=== PATIENT | female | born 1995 | race Asian ===

== ENCOUNTER 2022-10-28 09:29 | Inpatient (IN) ==
--- NOTE | 2022-10-28 11:11 | Emergency Department Note ---
ED Provider Note History of Present Illness Chief Complaint: Illness Stated Complaint: SWOLLEN AREA IN PERINEUM AREA Time Seen by Provider: 10/28/22 11:09 This is a healthy 26-year-old female on no daily medications who presents to the emergency department referred from [facility] for a cyst in her perineal region. Patient states that she noticed a very small amount of discomfort about 10 days ago, did not think much of it, and yesterday became more swollen and sensitive. It hurts when she pushes on it. It is a little uncomfortable when she wipes her bottom but does not have any pain with bowel movement. Has not drained anything. Symptoms are not accompanied by any fevers, chills, dysuria, abdominal pain, nausea, vomiting. Patient is never had anything like this before. No known history of MRSA. She is sexually active but is not concerned about Denies any abnormal vaginal discharge or bleeding. Home Medications Medication Instructions Recorded Confirmed Type Lactobacillus 1 cap PO QAM 10/28/22 10/28/22 History acidophilus-Lactbacillus bifidus 1 billion cell capsule multivitamin 1 tab PO QAM 10/28/22 10/28/22 History Allergies Allergy/AdvReac Type Severity Reaction Status Date / Time pet dander Allergy Intermediate Sneezing Uncoded 10/28/22 11:40 Past Med/Surg History Social History Smoking Status: Former smoker Second Hand Exposure: No; Do You Dip or Chew Tobacco: No; Tobacco Cessation Education Requested by Patient: No Hx Alcohol Use: Yes Alcohol type: beer and wine Hx Substance Use: Yes (Not currently using. Recreational.) Preferred Language: [place] Communication Ability: Effective Shuttle Operator Required: Yes Beliefs That Will Affect Care: None Current Living Situation: Alone Other Information That Helps Us Care for You: No Feels Safe at Home: Yes Safety Concerns: Feels Safe At This Time Assistive Devices: None Physical Exam Vital Signs Vital Signs - 24 hr 10/28/22 09:38 10/28/22 12:36 10/28/22 16:26 Temperature 98.1 F 99.1 F Temperature Source Oral Oral Pulse Rate 71 Pulse Rate [Right Finger] 97 H 68 Pulse Rhythm [Right Finger] Regular Regular Pulse Strength [Right Finger] Normal Normal Respiratory Rate 18 20 Respiratory Effort / Characteristics Non-Labored Spontaneous Non-Labored Spontaneous Respiratory Depth Normal Normal Respiratory Pattern Regular Blood Pressure 104/70 Blood Pressure [Right Arm] 116/75 Blood Pressure Mean 81 Blood Pressure Mean [Right Arm] 88 Blood Pressure Position [Right Arm] Semi-fowlers Pulse Oximetry 98 100 Oxygen Delivery Method Room Air Room Air Sepsis Recent Fever Within 48 Hours No Sepsis New/Unexplained Change in Mental Status No Sepsis Action Taken by Nursing No Action Required Female RN rn urology present for examination CONSTITUTIONAL: Well developed, well nourished, in no acute distress resting comfortably on stretcher. EYES: conjunctivae normal, extraocular muscles intact. ENMT: External ears normal. Nose with normal external appearance, no congestion. Oral mucous membranes moist. Oropharynx normal. NECK: Full active range of motion. LYMPHATIC: No inguinal adenopathy RESPIRATORY: Breathing unlabored and symmetric. ABDOMEN: Normal bowel sounds. Soft, nontender, no peritonitis. No masses. GENITOURINARY: There is a cystic abscess appearing structure present in the perineum. This is tender to palpation, slightly fluctuant. Does not involve the vagina. Abuts the anus. There is no surrounding erythema. Rectal exam reveals no obvious induration along the rectal wall though is somewhat uncomfortable for patient. There is no abnormal vaginal discharge or bleeding MUSCULOSKELETAL: Moves all extremities at all joints without pain or difficulty. No cyanosis or edema. Back with full range of motion. SKIN: [place], warm, dry. NEUROLOGIC: Awake, alert, oriented. Moves head and all four extremities spontaneously. Sensation and strength grossly intact. PSYCHIATRIC: Appropriate. Normal affect Course Administered Medications Lactated Ringer's (Lr) 1,000 mls @ 80 mls/hr IV .[id number] [facility] Stop: 11/27/22 19:09 Last Admin: 10/28/22 20:22 Dose: 80 mls/hr Documented By: RUT Ciprofloxacin (Cipro / D5w) 400 mg in 200 mls @ 100 mls/hr IV Q12H JENNIFER; Protocol Stop: 11/07/22 20:59 Last Admin: 10/28/22 22:45 Dose: 100 mls/hr Documented By: RUT Metronidazole (Flagyl) 500 mg in 100 mls @ 100 mls/hr IV Q8H JENNIFER; Protocol Stop: 11/07/22 19:59 Last Infusion: 10/28/22 22:53 Dose: 0 mls/hr Documented By: Admin: 10/28/22 21:21 Dose: 100 mls/hr Documented By: RUT Discontinued Medications Bacitracin (Bacitracin Oint 14 Gm Tube) Confirm Administered Dose 45 appln .ROUTE .[facility] Stop: 10/28/22 15:54 Last Admin: 10/28/22 17:06 Dose: 45 appln Documented By: GOLDY Bupivacaine HCl (Bupivacaine 0.5 % 5 Mg/1 Ml Mpf 30ml Vial) Confirm Administered Dose 30 ml .ROUTE .[facility] ONE Stop: 10/28/22 15:54 Last Admin: 10/28/22 17:07 Dose: 20 ml Documented By: GOLDY Gelatin (Gelatin Sponge 12-7mm) Confirm Administered Dose 1 each .ROUTE .[facility] ONE Stop: 10/28/22 15:54 Last Admin: 10/28/22 17:08 Dose: Not Given Documented By: SAM Ciprofloxacin (Cipro / D5w) 400 mg in 200 mls @ 100 mls/hr IV PREOP JENNIFER; Protocol Stop: 11/05/22 05:59 Last Infusion: 10/28/22 23:30 Dose: 0 mls/hr Documented By: Admin: 10/28/22 16:39 Dose: 100 mls/hr Documented By: [id number] Lactated Ringer's (Lr) 1,000 mls @ 125 mls/hr IV .Q8H JENNIFER Stop: 11/27/22 16:44 Last Infusion: 10/28/22 16:39 Dose: 0 mls/hr Documented By: Admin: 10/28/22 16:38 Dose: 125 mls/hr Documented By: MARANDA Ioversol (Optiray 320 100ml) 90 ml IV ONCE ONE Stop: 10/28/22 14:08 Last Admin: 10/28/22 14:07 Dose: 90 ml Documented By: RACHEL Lidocaine HCl (Lidocaine 1% Local 20 Ml Vial) Confirm Administered Dose 20 ml .ROUTE .[facility] ONE Stop: 10/28/22 15:54 Last Admin: 10/28/22 17:08 Dose: 20 ml Documented By: GOLDY Medical Decision Making Differential Diagnosis Abscess, epidermoid cyst, cellulitis, doubt Swati's gangrene, malignancy, doubt Bartholin gland abscess, perianal abscess, perirectal abscess, fistula, among other pathology Laboratory Data 10/28/22 11:40 10/28/22 11:40 Lab Results 10/28/22 10/28/22 10/28/22 Range/Units 11:40 11:40 11:41 WBC 6.47 (4.8-10.8) K/ul RBC 4.29 (4.20-5.40) M/uL Hgb 13.6 (12.0-16.0) g/dl Hct 40.0 (37.0-47.0) % MCV 93.2 (80.0-100.0) fL MCH 31.7 (25.0-34.0) pg MCHC 34.0 (32.0-36.0) g/dL RDW Std Deviation 41.9 (36.4-46.3) fL RDW Coeff of Elicia 12.2 (11.5-14.5) % Plt Count 292 (130-400) K/uL MPV 10.7 (9.4-12.4) fL Immature Gran % (Auto) 0.2 % Neut % (Auto) 63.2 % Lymph % (Auto) 30.6 % [place] % (Auto) 4.3 % Eos % (Auto) 0.9 % Baso % (Auto) 0.8 % Neut # (Auto) 4.09 (1.40-6.50) K/uL Lymph # (Auto) 1.98 (1.20-3.40) K/uL [place] # (Auto) 0.28 (0.11-0.59) K/uL Eos # (Auto) 0.06 (0.00-0.50) K/uL Baso # (Auto) 0.05 (0.00-0.20) K/uL Immature Gran # (Auto) 0.01 (0.01-0.20) K/uL Sodium 139 (136-145) mmol/L Potassium 3.6 (3.5-5.1) mmol/L Chloride 106 (98-107) mmol/L Carbon Dioxide 27 (21-32) mmol/L Anion Gap 6 (3-11) BUN 11 (6-23) mg/dl Creatinine 0.55 L (0.6-1.2) mg/dl Est Cr Clr Drug Dosing Not Reportable Est GFR ( Amer) 147.9 ml/min Est GFR (Non-Af Amer) 127.6 ml/min BUN/Creatinine Ratio 20.0 (10-20) Glucose 80 (70-99(Fasting)) mg/dl Calcium 9.6 (8.6-10.3) mg/dl Total Bilirubin 0.8 (0.2-1.0) mg/dl AST 17 (13-39) U/L ALT 11 (7-52) U/L Alkaline Phosphatase 70 (34-104) U/L Total Protein 7.1 (6.0-8.3) gm/dl Albumin 4.8 (3.4-5.0) gm/dl Globulin 2.3 L (2.5-4.0) gm/dl Albumin/Globulin Ratio 2.1 H (0.9-2) Urine Color Yellow Urine Appearance Clear (Clear) Urine pH 5.5 (4.5-7.5) Ur Specific [place] 1.017 (1.000-1.030) Urine Protein Negative (Negative) Urine Glucose (UA) Negative (Negative) Urine Ketones Negative (Negative) Urine Blood Negative (Negative) Urine Nitrite Negative (Negative) Urine Bilirubin Negative (Negative) Urine Urobilinogen Negative (Negative) Ur Leukocyte Esterase Negative (Negative) POC Ur Test (NEG) 10/28/22 Range/Units 11:41 WBC (4.8-10.8) K/ul RBC (4.20-5.40) M/uL Hgb (12.0-16.0) g/dl Hct (37.0-47.0) % MCV (80.0-100.0) fL MCH (25.0-34.0) pg MCHC (32.0-36.0) g/dL RDW Std Deviation (36.4-46.3) fL RDW Coeff of Elicia (11.5-14.5) % Plt Count (130-400) K/uL MPV (9.4-12.4) fL Immature Gran % (Auto) % Neut % (Auto) % Lymph % (Auto) % [place] % (Auto) % Eos % (Auto) % Baso % (Auto) % Neut # (Auto) (1.40-6.50) K/uL Lymph # (Auto) (1.20-3.40) K/uL [place] # (Auto) (0.11-0.59) K/uL Eos # (Auto) (0.00-0.50) K/uL Baso # (Auto) (0.00-0.20) K/uL Immature Gran # (Auto) (0.01-0.20) K/uL Sodium (136-145) mmol/L Potassium (3.5-5.1) mmol/L Chloride (98-107) mmol/L Carbon Dioxide (21-32) mmol/L Anion Gap (3-11) BUN (6-23) mg/dl Creatinine (0.6-1.2) mg/dl Est Cr Clr Drug Dosing Est GFR ( Amer) ml/min Est GFR (Non-Af Amer) ml/min BUN/Creatinine Ratio (10-20) Glucose (70-99(Fasting)) mg/dl Calcium (8.6-10.3) mg/dl Total Bilirubin (0.2-1.0) mg/dl AST (13-39) U/L ALT (7-52) U/L Alkaline Phosphatase (34-104) U/L Total Protein (6.0-8.3) gm/dl Albumin (3.4-5.0) gm/dl Globulin (2.5-4.0) gm/dl Albumin/Globulin Ratio (0.9-2) Urine Color Urine Appearance (Clear) Urine pH (4.5-7.5) Ur Specific [place] (1.000-1.030) Urine Protein (Negative) Urine Glucose (UA) (Negative) Urine Ketones (Negative) Urine Blood (Negative) Urine Nitrite (Negative) Urine Bilirubin (Negative) Urine Urobilinogen (Negative) Ur Leukocyte Esterase (Negative) POC Ur Test NEG (NEG) Imaging Data Radiologist's Impression: Soft Tissue Ultrasound 10/28/22 11:22 US soft tissue groin CLINICAL HISTORY: perineal ?abscess COMPARISON STUDY: No previous studies for comparison. TECHNIQUE: Sonography of the perineum was performed at site of painful lump. FINDINGS: Note is made of a 2.4 x 1.8 x 0.8 cm hypoechoic focus within the perineum, along anterior aspect of the rectum. This corresponds to the painful p alpable lump. This is intimately associated with the rectum and there may be an associated fistula with communication to the rectum. This contains no color flow. No additional abnormalities are identified. IMPRESSION: 2.4 x 1.8 x 0.8 cm perineal/anterior perirectal hypoechoic focus without color flow. This raises the possibility of a perirectal abscess with underlying fistula. A CT of the pelvis with IV contrast could be obtained for confirmation. ACT 112: Negative or not required by law. Electronically signed by: Sebastien Araujo M.D. 10/28/2022 1:46 PM Abdomen/Pelvis CT 10/28/22 13:34 CT OF THE ABDOMEN AND PELVIS WITH CONTRAST CLINICAL HISTORY: perineal mass with possible rectal communication COMPARISON STUDY: Perineal ultrasound performed earlier today. TECHNIQUE: Following IV administration of 90 mL of Optiray, axial images of the abdomen and pelvis were obtained from the lung bases to the proximal femurs. Images were reviewed in the axial, sagittal, and coronal planes. IV contrast was administered without complication. Automated exposure control was utilized for the study. A dose lowering technique was utilized adhering to the principles of ALARA. CT DOSE: 648.99 mGy.cm FINDINGS: Lung bases are unremarkable. No pneumatosis, free air or portal venous gas is present. Liver, spleen, adrenal glands, kidneys and pancreas are normal. There is no biliary or pancreatic ductal dilatation is no hydronephrosis. The appendix is normal. Caliber and wall thickness of small and large bowel are normal. Note is made of a 1.5 x 1.3 x 0.9 cm rim-enhancing fluid collection within the perineum, anterior to the anus. This corresponds to the finding on ultrasound. No additional fluid collections are present. No fistulas identified to the anus however a small fistula may be occult by CT. IMPRESSION: Small 1.5 x 1.3 x 0.9 cm rim-enhancing perineal/anterior perianal fluid collection which corresponds to the finding on ultrasound from earlier today. Sterility cannot be assessed by CT however this is suggestive of a small abscess, intimately associated with the anterior anus. ACT 112: Negative or not required by law. Electronically signed by: Sebastien Araujo M.D. 10/28/2022 2:25 PM [facility] Narrative 26-year-old female presents the emergency department with a cystic abscess type structure present in her perineum. It sound like this began about 10 days ago but became worse yesterday. Was referred to the emergency department by [facility] who evaluated her today. On exam she is well-appearing in no acute distress with normal vital signs. Inspection of the a cystic abscess type structure in the perineum which is slightly fluctuant and tender to palpation. There is no significant surrounding erythema genitourinary exam reveals. No crepitus. Rectal exam does not reveal any obvious infiltration into the rectal wall though it is uncomfortable for the patient. Patient declined anything for pain. An IV was inserted and labs were obtained. Urine: is negative. Urine without evidence of infection. Labs: No leukocytosis or anemia. Normal renal function. No electrolyte disturbance. No transaminitis. Ultrasound of the perineum was obtained showing a 2.4 cm perineal/anterior perirectal hypoechoic focus concerning for possible perirectal abscess with und erlying fistula. CT abdomen pelvis is recommended, and this was obtained demonstrating 1.5 cm rim-enhancing peritoneal/anterior perianal fluid collection suggestive of small abscess. No obvious communication with the rectum. Case was reviewed with general surgery and Dr. Stanford evaluated the patient at bedside. After discussing options with the patient, patient will be taken to the OR for incision and drainage. Dr. Stanford requests ciprofloxacin IV 400 mg preop. Case was reviewed multiple times with ED attending Dr. Romo while the patient was in the emergency department. Patient will be taken to the OR today Impression Abscess, perineum Discharge Plan Visit Data Chief Complaint: Illness Stated Complaint: SWOLLEN AREA IN PERINEUM AREA ED Provider: Aura Romo ED Midlevel Provider: Tim García Discharge Problem: Abscess, perineum Patient Disposition: Admitted As Inpatient Condition: Good
[2022-10-28 12:24] LABS: Basophils # (auto) 0.05 K/uL (0.00-0.20); Basophils % (auto) 0.8 %; Eosinophils # (auto) 0.06 K/uL (0.00-0.50); Eosinophils % (auto) 0.9 %; Hemoglobin 13.6 g/dl (12.0-16.0); Immature Granulocytes # (auto) 0.01 K/uL (0.01-0.20); Immature Granulocytes % (auto) 0.2 %; Lymphocytes # (auto) 1.98 K/uL (1.20-3.40); Lymphocytes % (auto) 30.6 %; Mean Corpuscular Hemoglobin 31.7 pg (25.0-34.0); Mean Corpuscular Volume 93.2 fL (80.0-100.0); Mean Platelet Volume 10.7 fL (9.4-12.4); Monocytes # (auto) 0.28 K/uL (0.11-0.59); Monocytes % (auto) 4.3 %; Neutrophils # (auto) 4.09 K/uL (1.40-6.50); Neutrophils % (auto) 63.2 %; Platelet Count 292 K/uL (130-400); RDW Coefficient of Variation 12.2 % (11.5-14.5); RDW Standard Deviation 41.9 fL (36.4-46.3); Red Blood Count 4.29 M/uL (4.20-5.40); White Blood Count 6.47 K/ul (4.8-10.8)
[2022-10-28 12:40] LABS: Alanine Aminotransferase 11 U/L (7-52); Albumin Globulin Ratio 2.1 (0.9-2); Albumin Level 4.8 gm/dl (3.4-5.0); Alkaline Phosphatase 70 U/L (34-104); Anion Gap 6 (3-11); Aspartate Aminotransferase 17 U/L (13-39); Bilirubin,Total 0.8 mg/dl (0.2-1.0); Blood Urea Nitrogen 11 mg/dl (6-23); Calcium 9.6 mg/dl (8.6-10.3); Carbon Dioxide 27 mmol/L (21-32); Chloride 106 mmol/L (98-107); Est GFR (African American) 147.9 ml/min; Est GFR (Non-African American) 127.6 ml/min; Globulin 2.3 gm/dl (2.5-4.0); Glucose 80 mg/dl (70-99(Fasting)); Potassium 3.6 mmol/L (3.5-5.1); Sodium 139 mmol/L (136-145); Total Protein 7.1 gm/dl (6.0-8.3)
[2022-10-28 12:51] LABS: Appearance Urine Clear (Clear); Bilirubin Urine Negative (Negative); Blood Urine Negative (Negative); Color Urine Yellow; Glucose Urine UA Negative (Negative); Ketones Urine Negative (Negative); Leukocyte Esterase Urine Negative (Negative); Nitrite Urine Negative (Negative); Protein Urine Negative (Negative); Specific Gravity Urine 1.017 (1.000-1.030); Urobilinogen Urine Negative (Negative); pH Urine 5.5 (4.5-7.5)
--- NOTE | 2022-10-28 13:49 | Ultrasound Report ---
US soft tissue groin CLINICAL HISTORY: perineal ?abscess COMPARISON STUDY: No previous studies for comparison. TECHNIQUE: Sonography of the perineum was performed at site of painful lump. FINDINGS: Note is made of a 2.4 x 1.8 x 0.8 cm hypoechoic focus within the perineum, along anterior a spect of the rectum. This corresponds to the painful palpable lump. This is intimately associated wit h the rectum and there may be an associated fistula with communication to the rectum. This contains n o color flow. No additional abnormalities are identified. IMPRESSION: 2.4 x 1.8 x 0.8 cm perineal/anterior perirectal hypoechoic focus without color flow. Th is raises the possibility of a perirectal abscess with underlying fistula. A CT of the pelvis with IV contrast could be obtained for confirmation. ACT 112: Negative or not required by law. Electronically signed by: Sebastien Araujo M.D. 10/28/2022 1:46 PM
[2022-10-28] MEDS ORDERED: OPTIRAY 320 100ml IV ONE (14:07)
--- NOTE | 2022-10-28 14:27 | CT Scan Report ---
CT OF THE ABDOMEN AND PELVIS WITH CONTRAST CLINICAL HISTORY: perineal mass with possible rectal communication COMPARISON STUDY: Perineal ultrasound performed earlier today. TECHNIQUE: Following IV administration of 90 mL of Optiray, axial images of the abdomen and pelvis we re obtained from the lung bases to the proximal femurs. Images were reviewed in the axial, sagittal, and coronal planes. IV contrast was administered without complication. Automated exposure control wa s utilized for the study. A dose lowering technique was utilized adhering to the principles of ALARA . CT DOSE: 648.99 mGy.cm FINDINGS: Lung bases are unremarkable. No pneumatosis, free air or portal venous gas is present. Live r, spleen, adrenal glands, kidneys and pancreas are normal. There is no biliary or pancreatic ductal dilatation is no hydronephrosis. The appendix is normal. Caliber and wall thickness of small and larg e bowel are normal. Note is made of a 1.5 x 1.3 x 0.9 cm rim-enhancing fluid collection within the pe rineum, anterior to the anus. This corresponds to the finding on ultrasound. No additional fluid ian ections are present. No fistulas identified to the anus however a small fistula may be occult by CT. IMPRESSION: Small 1.5 x 1.3 x 0.9 cm rim-enhancing perineal/anterior perianal fluid collection which corresponds to the finding on ultrasound from earlier today. Sterility cannot be assessed by CT bravo justo this is suggestive of a small abscess, intimately associated with the anterior anus. ACT 112: Negative or not required by law. Electronically signed by: Sebastien Araujo M.D. 10/28/2022 2:25 PM
--- NOTE | 2022-10-28 15:52 | Surgery Consultation ---
Date of Consultation October 28, 2022 Assessment & Plan (1) Juanita-rectal abscess: Assessment: Patient is a 26 years old female who presented 10 days history rectal pain. Patient had a ultrasound CT scan diagnosis of perirectal abscess. IMP: Perirectal abscess plan: Based on the patient history physical exam I recommend to do incision and drainage perirectal abscess. Discussion with the patient about the benefit the risk and alternative of the procedure. I indicated the risks may include but not limited such as a bleeding, infection, recurrence, rectal fistula, may need a more surgical procedures, scar and pain. patient understood. she agreed to proceed the procedure patient signed informed consent. I answered all questions. pre-op antibiotic. History of Present Illness Reason for Consultation: perirectal abscess Requesting Physician: Aura Park History of Present Illness CC: rectal pain HPI: Patient is a 26 years old female who presented to the ED with 10 days history of rectal pain. Patient felt small lump perirectal area about 10 days ago. Today if patient feels more rectal pain, but no drainage or from perirectal area. and the lump is to get bigger. Patient denies fever, no diarrhea. normal bowel movement today. No abdominal pain. Patient had a ultrasound and a CT scan done diagnosis perirectal abscess. I was asked to reconsult perirectal abscess. Allergies Allergy/AdvReac Type Severity Reaction Status Date / Time pet dander Allergy Intermediate Sneezing Uncoded 10/28/22 11:40 Home Medications Medication Instructions Recorded Confirmed Type Lactobacillus 1 cap PO QAM 10/28/22 10/28/22 History acidophilus-Lactbacillus bifidus 1 billion cell capsule multivitamin 1 tab PO QAM 10/28/22 10/28/22 History Patient History Social History Smoking Status: Never smoker Preferred Language: Upper Sorbian Feels Safe at Home: Yes Review of Systems Constitutional: as per Subjective / HPI Eyes: as per Subjective / HPI Respiratory: as per Subjective / HPI Cardiovascular: as per Subjective / HPI Gastrointestinal: as per Subjective / HPI Neurologic: as per Subjective / HPI Psychiatric: as per Subjective / HPI Endocrine: as per Subjective / HPI Hematologic / Lymphatic: as per Subjective / HPI Physical Exam Constitutional: WD/WN, vitals as above Eyes: PERRL, conjunctivae normal, anicteric sclerae Neck: trachea midline, no thyromegaly Respiratory: normal respiratory effort, lungs clear to auscultation Cardiovascular: RRR, no murmur, no edema Gastrointestinal (Abdomen): abdomen: soft, NT, Nd, BS +, rectal exam. nurse with us. a lump located anterior perirectal area, with redness and tenderness. no drainage. Neurologic: patellar DTR's 2+ bilat, sensation intact Psychiatric: A+Ox3, euthymic affect Results & Data Vital Signs (Past 12 Hours) Vital Signs Temp Pulse Pulse Resp BP Pulse Ox O2 Del Method 10/28/22 12:36 97 H 10/28/22 09:38 36.7 C 71 18 104/70 98 Room Air Laboratory Results Lab Results 10/28/22 10/28/22 10/28/22 Range/Units 11:40 11:40 11:41 WBC 6.47 (4.8-10.8) K/ul RBC 4.29 (4.20-5.40) M/uL Hgb 13.6 (12.0-16.0) g/dl Hct 40.0 (37.0-47.0) % MCV 93.2 (80.0-100.0) fL MCH 31.7 (25.0-34.0) pg MCHC 34.0 (32.0-36.0) g/dL RDW Std Deviation 41.9 (36.4-46.3) fL RDW Coeff of Elicia 12.2 (11.5-14.5) % Plt Count 292 (130-400) K/uL MPV 10.7 (9.4-12.4) fL Immature Gran % (Auto) 0.2 % Neut % (Auto) 63.2 % Lymph % (Auto) 30.6 % Smith % (Auto) 4.3 % Eos % (Auto) 0.9 % Baso % (Auto) 0.8 % Neut # (Auto) 4.09 (1.40-6.50) K/uL Lymph # (Auto) 1.98 (1.20-3.40) K/uL Smith # (Auto) 0.28 (0.11-0.59) K/uL Eos # (Auto) 0.06 (0.00-0.50) K/uL Baso # (Auto) 0.05 (0.00-0.20) K/uL Immature Gran # (Auto) 0.01 (0.01-0.20) K/uL Sodium 139 (136-145) mmol/L Potassium 3.6 (3.5-5.1) mmol/L Chloride 106 (98-107) mmol/L Carbon Dioxide 27 (21-32) mmol/L Anion Gap 6 (3-11) BUN 11 (6-23) mg/dl Creatinine 0.55 L (0.6-1.2) mg/dl Est Cr Clr Drug Dosing Not Reportable Est GFR ( Amer) 147.9 ml/min Est GFR (Non-Af Amer) 127.6 ml/min BUN/Creatinine Ratio 20.0 (10-20) Glucose 80 (70-99(Fasting)) mg/dl Calcium 9.6 (8.6-10.3) mg/dl Total Bilirubin 0.8 (0.2-1.0) mg/dl AST 17 (13-39) U/L ALT 11 (7-52) U/L Alkaline Phosphatase 70 (34-104) U/L Total Protein 7.1 (6.0-8.3) gm/dl Albumin 4.8 (3.4-5.0) gm/dl Globulin 2.3 L (2.5-4.0) gm/dl Albumin/Globulin Ratio 2.1 H (0.9-2) Urine Color Yellow Urine Appearance Clear (Clear) Urine pH 5.5 (4.5-7.5) Ur Specific [place] 1.017 (1.000-1.030) Urine Protein Negative (Negative) Urine Glucose (UA) Negative (Negative) Urine Ketones Negative (Negative) Urine Blood Negative (Negative) Urine Nitrite Negative (Negative) Urine Bilirubin Negative (Negative) Urine Urobilinogen Negative (Negative) Ur Leukocyte Esterase Negative (Negative) POC Ur Test (NEG) 10/28/22 Range/Units 11:41 WBC (4.8-10.8) K/ul RBC (4.20-5.40) M/uL Hgb (12.0-16.0) g/dl Hct (37.0-47.0) % MCV (80.0-100.0) fL MCH (25.0-34.0) pg MCHC (32.0-36.0) g/dL RDW Std Deviation (36.4-46.3) fL RDW Coeff of Elicia (11.5-14.5) % Plt Count (130-400) K/uL MPV (9.4-12.4) fL Immature Gran % (Auto) % Neut % (Auto) % Lymph % (Auto) % Smith % (Auto) % Eos % (Auto) % Baso % (Auto) % Neut # (Auto) (1.40-6.50) K/uL Lymph # (Auto) (1.20-3.40) K/uL Smith # (Auto) (0.11-0.59) K/uL Eos # (Auto) (0.00-0.50) K/uL Baso # (Auto) (0.00-0.20) K/uL Immature Gran # (Auto) (0.01-0.20) K/uL Sodium (136-145) mmol/L Potassium (3.5-5.1) mmol/L Chloride (98-107) mmol/L Carbon Dioxide (21-32) mmol/L Anion Gap (3-11) BUN (6-23) mg/dl Creatinine (0.6-1.2) mg/dl Est Cr Clr Drug Dosing Est GFR ( Amer) ml/min Est GFR (Non-Af Amer) ml/min BUN/Creatinine Ratio (10-20) Glucose (70-99(Fasting)) mg/dl Calcium (8.6-10.3) mg/dl Total Bilirubin (0.2-1.0) mg/dl AST (13-39) U/L ALT (7-52) U/L Alkaline Phosphatase (34-104) U/L Total Protein (6.0-8.3) gm/dl Albumin (3.4-5.0) gm/dl Globulin (2.5-4.0) gm/dl Albumin/Globulin Ratio (0.9-2) Urine Color Urine Appearance (Clear) Urine pH (4.5-7.5) Ur Specific [place] (1.000-1.030) Urine Protein (Negative) Urine Glucose (UA) (Negative) Urine Ketones (Negative) Urine Blood (Negative) Urine Nitrite (Negative) Urine Bilirubin (Negative) Urine Urobilinogen (Negative) Ur Leukocyte Esterase (Negative) POC Ur Test NEG (NEG) Diagnostic Findings CT OF THE ABDOMEN AND PELVIS WITH CONTRAST CLINICAL HISTORY: perineal mass with possible rectal communication COMPARISON STUDY: Perineal ultrasound performed earlier today. TECHNIQUE: Following IV administration of 90 mL of Optiray, axial images of the abdomen and pelvis were obtained from the lung bases to the proximal femurs. Images were reviewed in the axial, sagittal, and coronal planes. IV contrast was administered without complication. Automated exposure control was utilized for the study. A dose lowering technique was utilized adhering to the principles of ALARA. CT DOSE: 648.99 mGy.cm FINDINGS: Lung bases are unremarkable. No pneumatosis, free air or portal venous gas is present. Liver, spleen, adrenal glands, kidneys and pancreas are normal. There is no biliary or pancreatic ductal dilatation is no hydronephrosis. The appendix is normal. Caliber and wall thickness of small and large bowel are normal. Note is made of a 1.5 x 1.3 x 0.9 cm rim-enhancing fluid collection within the perineum, anterior to the anus. This corresponds to the finding on ultrasound. No additional fluid collections are present. No fistulas identified to the anus however a small fistula may be occult by CT. IMPRESSION: Small 1.5 x 1.3 x 0.9 cm rim-enhancing perineal/anterior perianal fluid collection which corresponds to the finding on ultrasound from earlier today. Sterility cannot be assessed by CT however this is suggestive of a small abscess, intimately associated with the anterior anus. US soft tissue groin CLINICAL HISTORY: perineal ?abscess COMPARISON STUDY: No previous studies for comparison. TECHNIQUE: Sonography of the perineum was performed at site of painful lump. FINDINGS: Note is made of a 2.4 x 1.8 x 0.8 cm hypoechoic focus within the perineum, along anterior aspect of the rectum. This corresponds to the painful palpable lump. This is intimately associated with the rectum and there may be an associated fistula with communication to the rectum. This contains no color flow. No additional abnormalities are identified. IMPRESSION: 2.4 x 1.8 x 0.8 cm perineal/anterior perirectal hypoechoic focus without color flow. This raises the possibility of a perirectal abscess with underlying fistula. A CT of the pelvis with IV contrast could be obtained for confirmation.
[2022-10-28] MEDS ORDERED: LIDOCAINE 1% LOCAL 20 ML VIAL ONE (15:53)
[2022-10-28] MEDS ORDERED: GELATIN SPONGE 12-7MM ONE (15:53)
[2022-10-28] MEDS ORDERED: BUPIVACAINE 0.5 % 5 MG/1 ML MPF 30ML VIAL ONE (15:53)
[2022-10-28] MEDS ORDERED: BACITRACIN OINT 14 GM TUBE ONE (15:53)
--- NOTE | 2022-10-28 16:00 | History & Physical Bridge Note ---
Date of Service October 28, 2022 History & Physical Bridge Note I have examined the patient, reviewed the History & Physical and in the interval since the performance of the History & Physical I have noted the following changes of clinical significance: no changes noted
[2022-10-28] MEDS ORDERED: DEXAMETHASONE SOD INJ 4 MG/ML VIAL ONE (16:04)
[2022-10-28] MEDS ORDERED: LIDOCAINE 2% 2 ML VIAL/AMP(20MG/ML) INFIL ONE (16:04)
[2022-10-28] MEDS ORDERED: fentaNYL citrate PF 100 MCG/2 ML VIAL ONE (16:04)
[2022-10-28] MEDS ORDERED: MIDAZOLAM HCL 1 MG/ML 2ML VIAL ONE (16:04)
[2022-10-28] MEDS ORDERED: ONDANSETRON INJ 2 MG/ML 2 ML VIAL ONE (16:04)
[2022-10-28] MEDS ORDERED: PROPOFOL IV EMULSION 10 MG/ML 20 ML VIAL IV ONE (16:04)
[2022-10-28] MEDS ORDERED: KETAMINE 50 MG/5 ML SYRINGE ONE (16:08)
[2022-10-28] MEDS ORDERED: CIPROFLOXACIN 400MG / 200ML D5W IV ONE (16:30)
[2022-10-28] MEDS ORDERED: LACTATED RINGER'S 1,000 ML IV SCH (16:45)
--- NOTE | 2022-10-28 16:46 | Anesthesiology Consultation ---
Date of Service October 28, 2022 Assessment & Plan Chart Review Chart Review: Acceptable Risk for Surgery Consults Requested none History Surgery Operation Date: 10/28/22 08:20 Proposed Procedures p Incision and Drainage Perirectal Abscess - Jonas Stanford MD Height/Weight Weight: 67.1 kg Allergies Allergy/AdvReac Type Severity Reaction Status Date / Time pet dander Allergy Intermediate Sneezing Uncoded 10/28/22 11:40 Medications Home Medications Medication Instructions Recorded Confirmed Last Taken Lactobacillus 1 cap PO QAM 10/28/22 10/28/22 10/27/22 acidophilus-Lactbacillus bifidus 1 billion cell capsule multivitamin 1 tab PO QAM 10/28/22 10/28/22 10/27/22 Active Medications Generic Name Dose Route Start Last Admin Trade Name Freq PRN Reason Stop Dose Admin Ciprofloxacin 400 mg in 200 mls @ 100 mls/hr 10/29/22 06:00 10/28/22 16:39 Cipro / D5w IV 11/05/22 05:59 100 mls/hr PREOP JENNIFER Administration Protocol Lactated Ringer's 1,000 mls @ 125 mls/hr 10/28/22 16:45 10/28/22 16:39 Lr IV 11/27/22 16:44 Infused .Q8H JENNIFER Infusion NPO Date Last Intake of Fluids: 10/28/22 Time Last Intake of Fluids: 11:00 Last Intake of Fluids Comment: could brew coffee with cream Date Last Intake of Solids: 10/27/22 Time Last Intake of Solids: 22:00 Social History Smoking Status: Never smoker Physical Exam Vital Signs Last Vital Signs Temp 37.3 C 10/28/22 16:26 Pulse 68 10/28/22 16:26 Resp 20 10/28/22 16:26 BP 116/75 10/28/22 16:26 Pulse Ox 100 10/28/22 16:26 O2 Del Method Room Air 10/28/22 16:26 Testing Laboratory Results 10/28/22 11:40 10/28/22 11:40 Urine Color Yellow 10/28/22 11:41 Urine Appearance Clear (Clear) 10/28/22 11:41 Urine pH 5.5 (4.5-7.5) 10/28/22 11:41 Ur Specific [place] 1.017 (1.000-1.030) 10/28/22 11:41 Urine Protein Negative (Negative) 10/28/22 11:41 Urine Glucose (UA) Negative (Negative) 10/28/22 11:41 Urine Ketones Negative (Negative) 10/28/22 11:41 Urine Nitrite Negative (Negative) 10/28/22 11:41 Ur Leukocyte Esterase Negative (Negative) 10/28/22 11:41 10/28/22 11:41 POC Ur Test NEG
--- NOTE | 2022-10-28 17:08 | Post Operative Brief Note ---
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 Fluids 300ml Drains [place] Drain Anesthesia Type General Complications none Disposition Accompanied Patient To Recovery: Yes
--- NOTE | 2022-10-28 17:18 | Operative Report ---
Post Operative Report Pre & Post Diagnosis Operation Date: 10/28/22 08:20 Pre-Op Diagnosis: Perirectal Abscess Post-Op Diagnosis: Perirectal Abscess I identified the patient and participated in the time-out.: Yes Procedure Operation Date: 10/28/22 08:20 Actual Procedures p Incision and Drainage Perirectal Abscess - Jonas Stanford MD Surgeon Jonas Stanford MD Carbon Printer surgical lead Estimated Blood Loss 5 Findings Consistent with Post-Op Diagnosis perirectal abscess Fluids 300ml Specimens wound culture sent Drains zohreh Anesthesia Type General Complications none Indications Patient is 26 years old female who presented with a 10-day history of rectal pain. CT scan diagnosis for rectal abscess. I recommend to do incision and drainage a perirectal abscess. I did talk to patient about the benefit the risk and alternatives of the procedure. Risks may include but not limited to such as a bleeding, infection, recurrence, rectal fistula, may need a more surgical procedure, scar and pain. Patient understands. She signed informed consent. I answered all questions. Description of Procedure After we identify patient to verify procedure. we brought patient to the or, put the patient on the supine position on the OR table. Patient received SCD on bilateral legs to prevent DVT. Patient received 400mgcipro iV prophylactic antibiotic. Patient received general anesthesia without difficulty. Elena put the patient lithotomy position on the OR table. The rectal area was propped and dropped in routine fashion. After timeout. I injections and local anesthesia by using 1% lidocaine mixed with 0.5% Marcaine around the perirectal abscess, anterior of rectum. I used a 15 blade to make a 1 cm incision on the abscess. There is some pus come out. Wound culture sent. Once we cleaned up the abscess. I placed 1 the Zohreh drainage in the abscess. Prepped 1.5 cm length. I used 3- 0 nylon fixes the [place] on the skin. Hemostasis is obtained. Put the dressing on. The patient tolerated procedure well. All instrument needle sponge counts are correct x2 in the case. Patient transferred to recovery room in stable condition. After procedure I did talk to patient about the OR finding procedure with the patient understood. I attest to the content of the Intraoperative Record and any orders documented therein. Any exceptions are noted below.
[2022-10-28] MEDS ORDERED: HYDROmorphone INJ 2 MG/ML SYR/VIAL IV PRN (17:51)
[2022-10-28] MEDS ORDERED: ONDANSETRON INJ 2 MG/ML 2 ML VIAL IV PRN (17:51)
[2022-10-28] MEDS ORDERED: PROMETHAZINE HCL 12.5 MG in SODIUM CHLORIDE 0.9% 50 ML IV PRN (17:51)
[2022-10-28] MEDS ORDERED: ATROPINE SULFATE 0.1 MG/ML 10ML SYR IV PRN (17:51)
[2022-10-28] MEDS ORDERED: fentaNYL citrate PF 100 MCG/2 ML VIAL IV PRN (17:51)
[2022-10-28] MEDS ORDERED: ePHEDrine sulfate 50 MG/ML AMP IV PRN (17:51)
--- NOTE | 2022-10-28 17:53 | Anesthesiology Progress Note ---
Date of Service October 28, 2022 Anesthesia Post Procedure Vital Signs Vital Signs: Temp Pulse Pulse Pulse Resp BP BP 10/28/22 17:35 60 16 102/69 10/28/22 17:45 57 L 13 109/75 10/28/22 17:25 51 L 12 92/57 L 10/28/22 17:17 36.1 C L 55 L 12 90/54 L 10/28/22 16:26 37.3 C 68 20 116/75 10/28/22 12:36 97 H 10/28/22 09:38 36.7 C 71 18 104/70 Pulse Ox O2 Del Method O2 Flow Rate 10/28/22 17:35 100 Room Air 10/28/22 17:45 100 Room Air 10/28/22 17:25 100 Oxymask 5 10/28/22 17:17 100 Oxymask 5 10/28/22 16:26 100 Room Air 10/28/22 12:36 10/28/22 09:38 98 Room Air Pain Intensity Perineal: Pain Intensity: 2 Transfer of Care Handoff Completed per policy Notes Mental Status: alert / awake / arousable and participated in evaluation Patient Amnestic to Procedure: Yes Nausea / Vomiting: adequately controlled Pain: adequately controlled Airway Patency, RR, SpO2: stable & adequate BP & HR: stable & adequate Hydration State: stable & adequate Anesthetic Complications: no major complications apparent
[2022-10-28] MEDS ORDERED: HYDROmorphone INJ 0.5 MG/0.5 ML SYR IV PRN (19:10)
[2022-10-28] MEDS: LACTATED RINGER'S 1,000 ML IV SCH (20:22)
[2022-10-28] MEDS: metroNIDAZOLE 500 MG/100 ML BAG IV SCH (21:21)
[2022-10-28] MEDS: CIPROFLOXACIN / D5W 400 MG/200 ML BAG IV SCH (22:45)
[2022-10-29] MEDS: oxyCODONE/ACETAMINOPHEN 5mg/325mg TAB PO PRN ×2 (01:31→07:28)
[2022-10-29] MEDS: metroNIDAZOLE 500 MG/100 ML BAG IV SCH ×2 (04:06→11:43)
[2022-10-29] MEDS ORDERED: CIPROFLOXACIN / D5W 400 MG/200 ML BAG IV SCH (06:00)
[2022-10-29] MEDS ORDERED: MULTIVITAMIN TAB PO SCH (09:00)
[2022-10-29] MEDS: LACTATED RINGER'S 1,000 ML IV SCH (09:00)
[2022-10-29] MEDS ORDERED: ADVANCED PROBIOTIC 1250 MG CAPSULE PO SCH (09:00)
[2022-10-29] MEDS: CIPROFLOXACIN / D5W 400 MG/200 ML BAG IV SCH (09:02)
[2022-10-29] MEDS ORDERED: ACETAMINOPHEN 325 MG TAB PO PRN (09:28)
[2022-10-29] MEDS ORDERED: IBUPROFEN 600 MG TAB PO PRN (09:28)
[2022-10-29] MEDS ORDERED: DOCUSATE SODIUM 100 MG CAP PO SCH (09:30)
[2022-10-29 09:39] LABS: Basophils # (auto) 0.03 K/uL (0.00-0.20); Basophils % (auto) 0.3 %; Hemoglobin 12.7 g/dl (12.0-16.0); Immature Granulocytes # (auto) 0.02 K/uL (0.01-0.20); Immature Granulocytes % (auto) 0.2 %; Lymphocytes # (auto) 1.86 K/uL (1.20-3.40); Lymphocytes % (auto) 19.5 %; Mean Corpuscular Hemoglobin 31.8 pg (25.0-34.0); Mean Corpuscular Hgb Conc 35.3 g/dL (32.0-36.0); Mean Platelet Volume 10.7 fL (9.4-12.4); Monocytes # (auto) 0.24 K/uL (0.11-0.59); Monocytes % (auto) 2.5 %; Neutrophils # (auto) 7.39 K/uL (1.40-6.50); Neutrophils % (auto) 77.5 %; Platelet Count 292 K/uL (130-400); RDW Standard Deviation 39.2 fL (36.4-46.3); White Blood Count 9.54 K/ul (4.8-10.8)
--- NOTE | 2022-10-29 11:46 | Discharge Summary ---
Date of Service October 29, 2022 Admission HPI Per Admitting Provider Patient is a 26 years old female who presented to the ED with 10 days history of rectal pain. Patient felt small lump perirectal area about 10 days ago. Today if patient feels more rectal pain, but no drainage or from perirectal area. and the lump is to get bigger. Patient denies fever, no diarrhea. normal bowel movement today. No abdominal pain. Patient had a ultrasound and a CT scan done diagnosis perirectal abscess. I was asked to reconsult perirectal abscess. Principal Diagnosis Perineal/perianal abscess Discharge Exam Constitutional WD/WN, vitals as above cooperative and comfortable; no acute distress and not ill appearing Skin no rashes, warm and dry Psychiatric A+Ox3, euthymic affect Discharge Data Allergies Allergy/AdvReac Type Severity Reaction Status Date / Time pet dander Allergy Intermediate Sneezing Uncoded 10/28/22 11:40 Consultations 10/29/22 11:11 Burn CD for patient Routine Procedures Performed Operation Date: 10/28/22 08:20 Actual Procedures p Incision and Drainage Perirectal Abscess - Jonas Stanford MD Ordered Studies 10/28/22 11:22 US soft tissue groin Urgent 10/28/22 13:34 CT Abd and Pelvis [CT abd pelvis IV con only] Stat Hospital Course (1) Juanita-rectal abscess: (2) Abscess, perineum: Plan Patient was taken to operating room from emergency department for incision and drainage of perineal/perianal abscess by Dr. Stanford on 10/28/2022. Patient found to have small anterior perianal abscess. [place] drain was placed into wound. Patient tolerated procedure without difficulty and transferred to med/surg floor for postoperative care and pain management with IV antibiotics. Diet advanced to full liquids. POD # 1 afebrile, vss, postop pain controlled. Tolerating diet. Patient was discharged home on POD # 1 in stable condition. Reimbursement Rep service used for postop visit and review of discharge instructions. 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) Discharge Plan Discharge Items Patient Disposition: Home - Self-Care Reason For Visit: SWOLLEN AREA IN PERINEUM AREA Discharge Diagnosis: Perianal abscess Condition on Discharge: Good Activity: Per Instructions section Non-emergency contact: Primary Care Provider and Surgeon Call non-emergency contact if: you have any medication questions, your pain is worsening, your pain is concerning for you, you have a fever, your wound has increased redness, your wound has increased drainage and your wound pain has increased Follow-up/Referrals: Jonas Stanford MD [Physician] - (1 week) PCP,LICHA [Physician] - Diet: Regular Addtl Attending Provider Instructions: ACTIVITY RECOMMENDATIONS: * No heavy lifting for 1 week. * Light activity is recommended (walking, light exercise, etc) MEDICATIONS: Resume previous medications unless instructed otherwise by your surgeon. * Colace 100 mg 2 times per day (stool softener) * Extra Strength Tylenol 500 - 650 mg every 6 hours, as needed for pain * Ibuprofen 600 mg every 6 hours, as needed for pain * Take antibiotics as prescribed for total of 7 days. Cipro 500 mg twice a day Flagyl 500 mg three times a day SPECIAL CARE INSTRUCTIONS: * Change outer dressings daily as needed to keep clean and dry * Shower once or twice a day. Can shower after bowel movements to keep area clean. * Surgical drain will be removed in office. * Call the surgeon's office with any questions or concerns - (ex. temperature higher than 101 degrees F, excessive bleeding or pain). FOLLOW UP VISIT: If not already scheduled, please call the office to schedule a one week follow- up appointment. Office number . Pending Studies at Discharge: Yes (culture results) Stand-Alone Forms: My IQMS, Smoking Cessation Medications and DC Order Prescriptions: New ciprofloxacin HCl 500 mg tablet 500 mg PO BID Qty: 14 0RF metronidazole 500 mg tablet 500 mg PO TID Qty: 21 0RF Continued multivitamin Tablet 1 tab PO QAM Lactobacillus acidoph-L. bifid 1 billion cell Capsule 1 cap PO QAM Discharge Orders: Discharge Order (Routine); Ordered 10/29/22 Ordered By: Pinky Mazariegos Admission Data Admit Date/Time: 10/28/22 17:11 Attending Provider: Jonas Stanford Admit Provider: Jonas Stanford Primary Care Provider: [facility]
== END 2022-10-29 13:47 | disposition home or self-care (01) | DRG 346 ==
LOC: ED 09:29 → OR 16:20 → 3N 16:20